=== PATIENT | male | born 1985 | race Caucasian/White ===

== ENCOUNTER 2019-02-03 18:49 | Emergency (ER) | payer BC ==
[2019-02-03] MEDS ORDERED: ceFAZolin 1 GM in Sodium Chloride 0.9% 50 ML IV ONE (18:54)
[2019-02-03] MEDS ORDERED: HYDROmorphone 0.5 MG/0.5 ML Syringe IVPUSH ONE ×3 (18:54→19:48)
[2019-02-03] MEDS ORDERED: Diphtheria,Pertussis(Acell),Tetanus Vaccine 0.5 ML SDV IM ONE (18:54)
[2019-02-03] MEDS ORDERED: Lactated Ringers 1,000 ML IV SCH (19:00)
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
[2019-02-03] MEDS ORDERED: HYDROmorphone 1 MG/ML Syringe IVPUSH ONE (19:23)
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
[2019-02-03] MEDS ORDERED: Ketorolac 30 MG/ML SDV IVPUSH ONE (20:20)
[2019-02-03] MEDS ORDERED: Morphine 10 MG/ML Syringe IVPUSH ONE (20:30)
== END 2019-02-03 21:07 ==
LOC: JP.ED 18:49
DX: S92.312B Displaced fracture of first metatarsal bone, left foot, initial encounter for open fracture (principal); S92.322B Displaced fracture of second metatarsal bone, left foot, initial encounter for open fracture; Z23 Encounter for immunization; W34.00XA Accidental discharge from unspecified firearms or gun, initial encounter
CPT/HCPCS: 36415; 73630; 80048; 85027; 90471; 90715; 96361; 96365; 96375; 96376; 99285; J0690; J1170; J1885; J2270; J7050; J7120